=== PATIENT | female | born 1950 | race Caucasian/White ===

== ENCOUNTER 2024-01-27 10:38 | Outpatient (AMB) | payer MEDICARE, SELFPAY ==
--- NOTE | 2024-01-27 10:43 | A.OFFVIS_ITS ---
Vital Signs 01/27/24 10:44 Height 4 ft 11.5 in BMI Reason not done Patient refused/unable BP 146/68 H Blood Pressure Location Rt brachial Position Sitting Pulse 73 Pulse Source Pulse Oximeter Pulse Oximetry (%) 98 Oxygen Delivery Method Room Air Comment 175lbs Intake Visit Reasons: Temporal arteritis ? GCA Intake Note: New pt presents today for GCA consult, referred by PCP Aimee Good. elevated sed rate, recurrent headaches, temporal tenderness, lump in throat pt is hoping she can travel to [place] next month [employer] Required: No Accompanied by: Daughter Allergies No Known Allergies Allergy (Verified 01/27/24 10:46) Medication List - Last Reconciled 01/27/24 by June Garcia MD alendronate 70 mg PO QWEEK furosemide 40 mg PO DAILY PRN naproxen 500 mg PO BID PRN rosuvastatin 40 mg PO DAILY HPI Comments Details: This is a 73-year-old female who presents for evaluation of right temporal headaches. The condition started back in May when she was diagnosed with interstitial lung disease. She states that she gets headaches about once or twice a month. Usually located in the right temporal area sometimes across the top of her head and her left ear. The headaches last a few hours to 2 days. Usually improved with Tylenol. Not associated with visual changes. She denies any jaw or tongue claudication. She has stiffness of her hands in the morning lasting couple of minutes. Denies any stiffness of her shoulders and hips. Denies any swollen joints. She has lost some weight over the last year through some changes in her diet. Denies any skin rashes. Denies any cramping of her hands or feet with activity. When evaluated last month by her PCP. Her ESR was noted to be elevated in the 50s and she was started on a prednisone taper for suspected GCA. She took prednisone taper starting at 60 mg daily and tapered off over 3 weeks. She did not feel any improvement with steroids. It made her a little bit anxious. She believes that her headaches are triggered by stress. [facility] Medical History Atherosclerotic heart disease of [place] coronary artery without angina pectoris Dysthymic disorder Hyperlipidemia Spinal stenosis Interstitial lung disease Pulmonary fibrosis Chronic back pain Osteoporosis PVD (peripheral vascular disease) Right sided temporal headache Elevated sed rate Surgical History Hx of hysterectomy Hx of knee surgery H/O shoulder surgery H/O heart surgery History of back surgery Family History Father Liver disease Sister Pulmonary fibrosis Sister Blood clotting disorder Mother Medical history unknown Social History Alcohol intake: never Patient Tobacco Use Status: Never used Tobacco Review of Systems Const Reports headache(s) and Reports weight loss Eyes Denies blurry vision, Denies change in vision and Denies diplopia ENT Reports headache(s) and Reports tinnitus Musc Reports deformity, Reports arthralgias and Reports stiffness Skin/Breast Reports alopecia Neuro Reports headache(s) Physical Exam Vital Signs: Last Vital Signs Pulse 73 01/27/24 10:44 BP 146/68 H 01/27/24 10:44 Pulse Ox 98 01/27/24 10:44 Oxygen Delivery Method Room Air 01/27/24 10:44 Const General: cooperative, healthy appearing and comfortable Nutritional Appearance: obese morbidly obese Orientation/consciousness: patient oriented x3 Limitations: no limitations HEENT Other: Minimal right temporal area tenderness Head: Yes normocephalic and Yes atraumatic Mouth: Normal oral and palatal mucosa present Resp Effort & Inspection: normal respiratory effort and able to speak in complete sentences Auscultation: rales bilateral at the base Cardio Rate: regular rate Skin General skin exam: no rashes or lesions noted Neuro General: patient oriented x3 Extrem Other: No active synovitis Prominent osteoarthritic changes of both hands normal range of motion of hands, wrists, elbows and shoulders without pain Results Reviewed Results Reviewed: CAT SCAN OF CHEST NO CONTRAST Exam Date: 06/24/2023 12:49 PM Ordering Diagnosis: ILD (interstitial lung disease) (HCC) ? CAT SCAN OF CHEST NO CONTRAST ? TECHNIQUE: Multidetector CT of the chest was performed without intravenous contrast. ? Comparison: Chest radiograph on June 14, 2023. ? History: Interstitial lung disease. ? FINDINGS: ? Devices/Tubes/Lines: None. ? Lungs: Central airways are patent. No pulmonary consolidation. Fibrotic changes in the subpleural regions and lung bases. No suspicious pulmonary nodules. ? Pleura: No pleural effusion or pneumothorax. ? Mediastinum: Partially evaluated approximately 2.3 cm left thyroid nodule (3:9). Heart is normal in size. No pericardial effusion. Severe coronary artery calcifications. Evidence of coronary bypass surgery. ? Lymph Nodes: No enlarged supraclavicular, axillary, mediastinal, or hilar lymph nodes. ? Upper Abdomen: Absence of intravenous contrast limits sensitivity for detecting solid organ findings. Cholecystectomy. Vascular calcifications. ? Chest Wall: No chest wall mass. ? Bones: Median sternotomy. ? IMPRESSION IMPRESSION: ? 1. No acute cardiopulmonary process. 2. Mild interstitial lung disease, with pattern of usual interstitial pneumonia. 3. Left thyroid nodule. ? ? Assessment & Plan Assessment & Plan (1) Headache: Code(s): R51.9 - Headache, unspecified Category: Medical Qualifiers: Headache type: unspecified Headache chronicity pattern: chronic headache Intractability: not intractable Qualified Code(s): R51.9 - Headache, unspecified; G89.29 - Other chronic pain Plan: This is a 73-year-old female who presents for evaluation of right temporal headaches in the setting of high ESR. Patient's has been having those headaches for about 7 months now, per patient they occur once or twice a month, resolve in 1-2 days resolve with Tylenol. No visual changes. There is no jaw or tongue claudication. There are no PMR like symptoms. Patient was prescribed prednisone taper starting at 60 mg daily for about 3 weeks without much improvement. At this point, her symptoms are not consistent with joints and arthritis. I recommend neurology evaluation. Discussed symptoms and signs suggestive of giant cell arteritis. Advised larry gusman to go to the emergency room if she has an abrupt onset of headache especially if associated with any visual symptoms. Follow-up as needed Plan I spent 47 minutes reviewing patient's chart, looking at records from [place], evaluating patient, counseling patient and documenting in the chart Coding Level of Care Code New Pt Level 4 (46288) Diagnoses Chronic nonintractable headache, unspecified headache type R51.9; G89.29 Headache type: unspecified Headache chronicity pattern: chronic headache Intractability: not intractable
[2024-01-27 10:44] VITALS: BP 146/68; PULSE 73; O2SAT 98
== END 2024-01-27 11:42 | disposition home or self-care (01) ==
PROVIDERS: PCP Nurse Practitioner Primary Care; Visit Provider Student in an Organized Health Care Education/Training Program
DX: R51.9 Headache, unspecified (principal); G89.29 Other chronic pain
CPT/HCPCS: 99204

== ENCOUNTER → 2024-01-27 10:38 | Outpatient (BNVA) | payer MEDICARE, SELFPAY | PROVIDERS: PCP Nurse Practitioner Primary Care; Visit Provider Student in an Organized Health Care Education/Training Program | DX: R51.9 Headache, unspecified (principal); G89.29 Other chronic pain | CPT/HCPCS: 99202 ==